=== PATIENT | female | born 1995 | race Caucasian/White ===

== ENCOUNTER 2021-04-13 10:23 | Inpatient (IN) | payer OTHER ==
[2021-04-13] VITALS (32 sets, daily range): BP systolic 98–138; BP diastolic 54–80
[~2021-04-13] VITALS: Ht 175.3 cm; Wt 92.4 kg
[2021-04-13] MEDS ORDERED: LR 1,000 ML IV SCH ×2 (10:40→10:55)
[2021-04-13] MEDS ORDERED: TRANEXAMIC ACID INJection 1,000 MG in NS 100 ML IV PRN ×3 (10:40→10:55)
[2021-04-13] MEDS ORDERED: LACTATED RINGER'S 1000 ML IV STA ×3 (10:40→10:51)
[2021-04-13] MEDS ORDERED: OXYTOCIN DRIP 30 UNITS in IV 1 EA IV PRN ×3 (10:40→10:55)
[2021-04-13] MEDS ORDERED: CARBOPROST TROMETHAMINE 250 MCG/ML AMP IM PRN ×2 (10:50→10:55)
[2021-04-13] MEDS ORDERED: TUMS500C PO (11:03)
[2021-04-13] MEDS ORDERED: STUACAP PO (11:03)
[2021-04-13] MEDS ORDERED: PROP60CA PO (11:05)
[2021-04-13] MEDS ORDERED: HOME MED LIST COMPLETE! XX SCH (11:20)
[2021-04-13 11:50] LABS: HEMATOCRIT 38.6 % (36.0-47.0); HEMOGLOBIN 13.4 g/dl (12.0-15.5); MEAN CORPUSCULAR HEMOGLOBIN 31.2 pg (27.0-33.0); MEAN CORPUSCULAR HGB CONC 34.7 g/dl (32.0-36.5); MEAN CORPUSCULAR VOLUME 89.8 fl (80.0-96.0); PLATELET COUNT, AUTOMATED 239 10^3/uL (150-450); WHITE BLOOD COUNT 13.1 10^3/uL (4.0-10.0)
[2021-04-13 12:25] LABS: ALT/SGPT 20 U/L (12-78); BILIRUBIN,TOTAL 0.4 MG/DL (0.2-1.0); CREATININE FOR GFR 0.56 MG/DL (0.55-1.30); GLOMERULAR FILTRATION RATE > 60.0 (>60); LDH LACTATE DEHYDROGENASE 159 U/L (84-246); URIC ACID 4.8 MG/DL (2.6-6.0)
--- NOTE | 2021-04-13 13:35 | HPEPDOC ---
Obstetrical History & Physical General Date of Admission Apr 13, 2021 at 10:42 History of Present Illness 25 yo at 37w0d with JULIA of 04 MAY 2021 was sent from the clinic to L&D for IOL for CHTN on propanolol 60 mg with variable decelerations in the clinic today during APFTs. She denies headache, chest pain, RUQ pain, and visual changes. She has supportive family at the bedside. 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: No pertinent history Past Medical History Medical History CHTN, mitral valve regurgitation, migraine headaches Surgical History: Leburn teeth, Other (Breast lumpectomy x3 for pilonidal cysts) Family History Significant Family History: Cancer, Heart disease, Hypertension Social History Marital Status: Psychosocial History: No pertinent psych hx * Smoker: non-smoker Alcohol: Denies Drugs: denies Abuse Violence Screening Have you been hit/kicked/slapp: No Have you been sexually assault: No Imunizations Tdap status: current Influenza Status: current Allergies Coded Allergies: acetaminophen (Verified Allergy, Intermediate, RASH N/V, 04/13/21) hydrocodone (Verified Allergy, Intermediate, RASH N/V, 04/13/21) sulfamethoxazole (Verified Allergy, Unknown, 04/13/21) trimethoprim (Verified Allergy, Unknown, 04/13/21) Medications Scheduled Calcium Carbonate (Tums) 200 Mg Tab.chew, 2 TAB PO QID for cough and congestion Propranolol HCl (Propranolol HCl ER) 60 Mg Cap.sa.24h, 1 CAP PO DAILY Miscellaneous Medications Pnv No.63/Iron,Carb/Folic/Dha ([place] One Capsule) 1 Each Capsule, 1 CAP PO Physical Examination Physical Examination GENERAL: Alert and oriented times three. BREAST: . ABDOMEN: Gravid and non-tender to touch. FETUS: Is vertex (VTX) by sterile vaginal examination (SVE), fetus is vertex (VTX) by Adin. HEART RATE: Regular rate and rhythm. LUNGS: Clear to auscultation (CTA). EXTREMITIES: No edema. No clonus. Deep tendon reflexes (DTRs) + 2. Vital Signs/I&O Vital Signs Date Time Temp Pulse Resp B/P (MAP) Pulse Ox O2 Delivery O2 Flow Rate FiO2 04/13/21 10:59 97.4 81 18 126/79 (95) Room Air Pertinent Laboratoy Data Blood Type: A+ RBC Antibody Screen: Negative HIV: Negative Hepatitis B: Negative Rapid Plasma Reagin: Nonreactive Rubella: Immune Varicella: Immune Chlamydia/Gonorrhea: Negative Group B Streptococcus: Negative Cystic Fibrosis: Negative Steroid Therapy Steroid Therapy: No Vaginal Examination Dilation: 1cm Effacement: 50% Station: -3 Cervical Consistency: Medium Cervical Position: Posterior Presentation: Cephalic presentation Position: Vertex (occiput) Assessment Heart Rate (FHR): 125 Variability: Moderate Accelerations: Present Decelerations: None Tocometer Contractions: No Multi-drug resistant Organism: No history of MDRO Assessment/Plan Assessment IUP at 37w0d IOL for CHTN on medications Plan Admit and orient. National Facilities Manager and consent. Diet: clear liquids. Group B Streptococcus (GBS) negative. Labs and intravenous (IV) per unit protocol. Counseled on cook balloon, cytotec, Pitocin and induction of labor (IOL). Lactated Ringers (LR): Bolus 1000 mL, then at 125 mL/hr. After discussion of plan with the patient and her spouse, it was mutually agreed upon for IOL to start with a cook catheter balloon and cytotec. Anticipate normal spontaneous delivery (). C-S as appropriate. The start of IOL has been placed on hold due to high census of L&D unit and nursing staff/patient ratios and her IOL will be started when safe to proceed. Patient and her spouse have been made aware of hold status and are agreeable to the plan Labor and Delivery Counseling We will deliver your baby through the vagina with possible assistance of forceps or vacuum device if needed for maternal or indications. Forceps and vacuum are devices that can assist with vaginal delivery when normal pushing efforts cannot achieve delivery on their own or when delivery is needed in an emergency for baby's well-being. Medications may be required to induce or augment (help) your labor in order to achieve a vaginal delivery. An episiotomy may be required to help your baby to delivery vaginally. You may also require repair of any lacerations or tears of your vagina or vulva that are caused by delivery. In some cases, emergencies can occur that require an emergency section delivery so quickly that there may not be enough time to stop and complete consent forms for section. Understand that if this occurs, your providers will discuss the need for a section with you before they proceed with surgery. section is the delivery of your baby through an incision in your abdomen. In some situations, section may be safer to mom and baby than continuing labor and is only performed when clinically indicated. Risks of vaginal delivery include but are not limited to: Bleeding, infection, injury to the vagina, pelvic structures, injury to baby, damage to the uterus, reactions to anesthesia, uterine rupture, risk of hysterectomy for life threatening bleeding, or . Medications used to induce or augment labor may increase your risk for infection, uterine tachysystole, uterine rupture, heart rate abnormalities, need for emergency delivery or possible ce sarean hysterectomy, and hemorrhage. Additional risks for use of forceps and vacuum include: increased risk of perineal and vaginal lacerations, risk of urinary or bowel incontinence, increased risk of injury to baby with bruising, scratches, hematomas on the head, or intracranial bleeding. Risks of obstetric complications secondary to CHTN were discussed to include pre -eclampsia, eclampsia, HELLP syndrome, DIC, and PPH, along with the risks of shoulder dystocia. We discussed the risks, process, and methods for IOL to include cytotec, cook catheter balloon, and pitocin. All questions were answered to both her and her spouse's satisfaction. They verbalized understanding of all information and is without any further questions at this time. EVARISTO FRANCES CNM Apr 13, 2021 11:37
[2021-04-13] MEDS ORDERED: BUTORPHANOL 2 MG/ML INJ (J0595) IV PRN (13:45)
[2021-04-13] MEDS ORDERED: FAMOTIDINE INJ 20MG/2ML VIAL (S0028 PER 1) IVP PRN (13:45)
[2021-04-13] MEDS ORDERED: PROMETHAZINE INJ 25 MG/ML VIAL (J2550) IV PRN (13:45)
[2021-04-13 15:46] LABS: CREATININE,RANDOM URINE 47.5 MG/DL; TOTAL PROTEIN,RANDOM URINE 9.3 MG/DL (0.0-12.0)
[2021-04-13] MEDS: LR 1,000 ML IV SCH (19:55)
[2021-04-14] VITALS (47 sets, daily range): BP systolic 80–147; BP diastolic 45–93
--- NOTE | 2021-04-14 00:29 | IPNPDOC ---
Obstetrical Progress Note Date of Service Apr 14, 2021 Objective Vital Signs Date Time Temp Pulse Resp B/P (MAP) Pulse Ox O2 Delivery O2 Flow Rate FiO2 04/13/21 18:06 97.0 74 18 120/72 (88) 04/13/21 10:59 Room Air Assessment and Plan Additional Comments To room for start of induction of labor. Ms. Donald is a 25yo at 37+1 with CHTN on medications who had some variable decelerations in the clinic on NST. She has been continously monitored until staffing was available to start her induction of labor. She has been category I, but difficult to monitor. Her SVE was 2/50/-3 and a DLFB was placed. Will consider addition of cytotec if the baby tolerates the DLFB and monitoring can remain consistent. GRAHAM SAM DO Apr 14, 2021 00:29
[2021-04-14] MEDS ORDERED: FENTANYL 2MCG/ML ROPIVACAINE 0.2% IN 0.9% NACL 100ML IVBAG As Ordered ONE (02:13)
[2021-04-14] MEDS: LR 1,000 ML IV SCH ×5 (02:58→16:32)
[2021-04-14] MEDS ORDERED: ONDANSETRON 4MG/2ML VIAL IV PRN (03:45)
[2021-04-14] MEDS ORDERED: LACTATED RINGER'S 1000 ML IV PRN (03:45)
[2021-04-14] MEDS ORDERED: EPIDURAL/PCA KEYS XX PRN (03:45)
[2021-04-14] MEDS ORDERED: diphenhydrAMINE 50MG/ML VIAL (J1200) IV PRN (03:45)
[2021-04-14] MEDS ORDERED: NALOXONE INJ 0.4MG/1ML VIAL (J2310 PER 1MG) IV PRN (03:45)
[2021-04-14] MEDS ORDERED: EPIDURAL COMMENT XX SCH (03:45)
[2021-04-14] MEDS ORDERED: REFRIGERATOR IV KEYS XX PRN (03:45)
[2021-04-14] MEDS: FENTANYL/ROPIVACAINE/NACL BAG 100 ML EPIDURAL SCH ×3 (04:05→13:32)
[2021-04-14] MEDS: ePHEDrine SULFATE 25 MG/5 ML(5MG/ML) SYRINGE IV PRN ×3 (04:58→05:05)
[2021-04-14] MEDS ORDERED: OXYTOCIN DRIP 30 UNITS in IV 1 EA IV SCH ×2 (09:55→18:00)
--- NOTE | 2021-04-14 10:56 | IPNPDOC ---
Obstetrical Progress Note Date of Service Apr 14, 2021 Subjective 25 yo at 37w1d with JULIA of 04 MAY 2021 admitted for IOL for CHTN. She is comfortable with her epidural. She has no complaints at this time. Objective Vital Signs Date Time Temp Pulse Resp B/P (MAP) Pulse Ox O2 Delivery O2 Flow Rate FiO2 04/14/21 07:20 97.8 62 18 98/54 (69) 04/13/21 10:59 Room Air Cook balloon found in the vagina with no cervix around the internal cook balloon. Cook balloon removed intact. Assessment Heart Rate (FHR): 115 Variability: Moderate Accelerations: Present Decelerations: None Tocometer Contractions: Yes Frequency: regular (every 4 minutes) Sterile Vaginal Examination Dilation: 6 cm Effacement (%): 70% Station: -2 Cervical Consistency: Soft Cervical Position: Anterior Postion/Presentation: Cephalic presentation Assessment and Plan Age: 25 : 1 Term: 0 Pre-term: 0 Abortions: 0 Livin Weeks & Days 37w1d Status: Reassuring Group B Streptococcus: Negative Anticipate: Vaginal Delivery EVARISTO FRANCES CNM Apr 14, 2021 10:56
--- NOTE | 2021-04-14 16:06 | IPNPDOC ---
Obstetrical Progress Note Date of Service Apr 14, 2021 Subjective 25 yo at 37w1d with JULIA of 04 MAY 2021 admitted for IOL for CHTN. She reports that she has been having some small episodes of vomiting and she has not told anyone about this. She has had a few episodes of vomiting after eating jello. Discussed that she should inform staff when she vomits so that we can help take care of vomiting. She reports that she was given zofran and pepcid las t night and reports that it did not help. Objective Vital Signs Date Time Temp Pulse Resp B/P (MAP) Pulse Ox O2 Delivery O2 Flow Rate FiO2 04/14/21 11:50 51 95/52 (66) 04/14/21 07:20 97.8 18 04/13/21 10:59 Room Air AROM for clear fluid Assessment Heart Rate (FHR): 125 Variability: Moderate Accelerations: Present Decelerations: Variable Tocometer Contractions: Yes Frequency: regular (every 2-5 minutes) Sterile Vaginal Examination Dilation: 6 cm Effacement (%): 80% Station: -2 Cervical Consistency: Soft Cervical Position: Middle Postion/Presentation: Cephalic presentation Assessment and Plan Age: 25 : 1 Term: 0 Pre-term: 0 Abortions: 0 Livin Weeks & Days 37w1d Status: Reassuring Group B Streptococcus: Negative Anticipate: Vaginal Delivery Additional Comments Will start bolus of IV fluids. Discussed with her that nausea may be more due to blood pressure being lower than her normal level. May need to administer another dose of ephedrine, however will try to see how she responds to IV bolus first She has received 3 doses of IV ephedrine after epidural placement. She verbalizes understanding of this information. Discussed patient status with Dr. Mendez, who agrees with plan EVARISTO FRANCES CNM Apr 14, 2021 16:06
[2021-04-14] MEDS ORDERED: LIDOCAINE 1% MDV 20ML VIAL As Ordered ONE (17:36)
[2021-04-14] MEDS ORDERED: RHOGAM 300 MCG (1500 IU) INJ (J2790) IM SCH (18:00)
[2021-04-14] MEDS ORDERED: IBUPROFEN 600MG TAB PO PRN (18:00)
[2021-04-14] MEDS ORDERED: METHYLERGONOVINE MALEATE 0.2 MG TAB PO PRN (18:00)
[2021-04-14] MEDS ORDERED: MEASLES,MUMPS,RUBELLA VACCINE INJ (MMR-II) (90707) SC SCH (18:00)
[2021-04-14] MEDS ORDERED: DIBUCAINE 1% OINTMENT 30GM TOP PRN (18:00)
[2021-04-14] MEDS ORDERED: LIDOCAINE 1% MDV 20ML VIAL SC ONE (18:05)
[2021-04-14 18:11] LABS: CORD GAS ABE A -5.7; CORD GAS HCO3 A 19.3 MEQ/L; CORD GAS O2 SAT A 57.4 %; CORD GAS PCO2 A 36.6 mmHg; CORD GAS PH A 7.339 UNITS; CORD GAS PO2 A 24.6 mmHg; CORD GAS SBC A 18.9 MEQ/L; CORD GAS TCO2 A 20.4 MEQ/L
[2021-04-14 18:12] LABS: CORD GAS HCO3 V 20.5 MEQ/L; CORD GAS O2 SAT V 62.8 %; CORD GAS PCO2 V 39.5 mmHg; CORD GAS PH V 7.332 UNITS; CORD GAS PO2 V 24.4 mmHg; CORD GAS SBC V 19.5 MEQ/L; CORD GAS TCO2 V 21.7 MEQ/L
--- NOTE | 2021-04-14 18:14 | DNPDOC ---
[facility] Delivery Note Delivery Note DATE OF DELIVERY: 04/14/21 PREDELIVERY DIAGNOSIS: 37weeks gestation Category II heart tracing CHTN Mitral valve regurgitation Migraine headaches POST DELIVERY DIAGNOSIS: Delivered. 37weeks and 1 day gestation Category II heart tracing CHTN Mitral valve regurgitation Migraine headaches PROCEDURE: Spontaneous vaginal delivery Repair of second degree laceration and R periurethral laceration LEAD JAVA PROGRAMMER: Dr. Pierre ANESTHESIA: epidural, 1% lidocaine for perineal repair ESTIMATED BLOOD LOSS: 100 mL. FINDINGS: 5 pound 12 ounce male infant, Score 8/9. Arterial cord gas 7.3/- 5.7, venous 7.3/-5.0. Second degree perineal laceration and R periurethral laceration DELIVERY SUMMARY: Millicent is a 25 yo at 37w0d with JULIA of 04 MAY 2021 was sent from the clinic to L&D for IOL for CHTN on propanolol 60 mg with variable decelerations during APFTs. Her induction was initiated with a DLFB, followed by pitocin and AROM. She progressed to C/C/+1 and felt the urge to push. With good maternal pushing efforts, infants head delivered over the perineum and was allowed to restitute to GAVIN. The remainder of the body delivered immediately after without difficulty. was crying and moving all extremities. Cord was doubly clamped and cut by father of the baby. Cord gases obtained. Placenta delivered intact and perineum was inspected with second degree laceration and R periurethral laceration noted. Pt's epidural was not working well at this time therefore 1% lidocaine injected for additional analgesia. Repair was performed in usual fashion with 3-0 vicryl radpide, and figure of eight suture was placed on periurethral incision. EBL was 100cc. Mom and baby stable immediately postpa rtum. NANCI PIERRE M.D. Apr 14, 2021 18:14
[2021-04-14] MEDS: IBUPROFEN 800 MG TAB PO PRN (19:41)
[2021-04-14] MEDS ORDERED: ACETAMINOPHEN TAB 650MG DOSE (2X325MG) PO PRN (23:40)
[2021-04-15] VITALS: BP 107/60
[2021-04-15] MEDS: DOCUSATE SODIUM 100MG CAPSULE PO PRN (05:15)
[2021-04-15] MEDS: IBUPROFEN 800 MG TAB PO PRN ×2 (05:17→16:49)
[2021-04-15 06:00] VITALS: BP 104/51
[2021-04-15] MEDS: ACETAMINOPHEN 500 MG TAB PO PRN ×3 (06:53→21:05)
--- NOTE | 2021-04-15 07:58 | IPNPDOC ---
Progress Note Date of Service: Apr 15, 2021 Day#: 1 Progress Note SUBJECT: Millicent is a 25-year-old 1 now Para 1001 status post uncompl icated spontaneous vaginal delivery at 37 1/7 weeks' on 04/14/21 of a 5 pound 12 ounce male infant, Score 8/9. Arterial cord gas 7.3/-5.7, venous 7.3/-5.0. Second degree perineal laceration and R periurethral laceration performed. Doing well day # 1. She has been ambulating, voiding spontaneously without issue and tolerating regular diet. Breast feeding without issue. Reports lochia is minimal. OBJECTIVE: VITAL SIGNS: Within normal limits, afebrile. Alert and oriented times three. normal work of breathing Heart rate: Regular rate Abdomen: Fundus firm at U-2. Soft, NTTP. ASSESSMENT: Millicent is a 25-year-old 1 now Para 1001 status post uncomplicated spontaneous vaginal delivery at 37 1/7 weeks' on 04/14/21 of a 5 pound 12 ounce male , Score 8/9. Arterial cord gas 7.3/-5.7, venous 7.3/-5.0. Second degree perineal laceration and R periurethral laceration performed. Doing well day # 1.. Vitals within normal limits, afebrile, hemodynamically stable with no evidence of infection. PLAN: 1. Discharge to home tomorrow. 2. Tylenol and Motrin for pain. 3. Encourage breast feeding and ambulation. Desires circumcision for baby 4. Undecided on contraception. Plans to discuss at 6wk visit. 5. Routine PP visit in 6 weeks in clinic. 6. Discussed return precautions at length. VS, I&O, 24H, Fishbone Vital Signs/I&O Vital Signs Date Time Temp Pulse Resp B/P (MAP) Pulse Ox O2 Delivery O2 Flow Rate FiO2 04/15/21 06:00 97.4 76 16 104/51 (68) 97 Room Air I&O- Last 24 Hours up to 6 AM 04/15/21 06:00 Intake Total 1867.8 ml Output Total 2100 ml Balance -232.2 ml Laboratory Data 24H LABS Laboratory Tests 2 04/14/21 17:51: Cord Arterial Blood pH 7.339, Cord Arterial Blood PCO2 36.6, Cord Arterial Blood PO2 24.6, Cord Arterial Blood HCO3 19.3, Cord Arterial Blood Total CO2 20.4, Cord Arterial Blood Base Excess -5.7, Cord Arterial Base Excess (Standard 18.9, Cord Arterial Bld Oxygen Saturation 57.4, Cord Venous Blood pH 7.332, Cord Venous Blood PCO2 39.5, Cord Venous Blood PO2 24.4, Cord Venous Blood HCO3 20.5, Cord Venous Blood Total CO2 21.7, Cord Venous Base Excess (Actual) -5.0, Cord Venous Base Excess (Standard) 19.5, Cord Venous Blood Oxygen Saturation 62.8 04/14/21 18:02: Serology Scanned Report Hepatitis B Testing NANCI PIERRE M.D. Apr 15, 2021 07:58
[2021-04-15] MEDS: PRENATAL VITAMINS CHEWABLE TABLET PO SCH (08:11)
[2021-04-15 18:00] VITALS: BP 119/63
[2021-04-16 06:00] VITALS: BP 121/65
[2021-04-16] MEDS: DOCUSATE SODIUM 100MG CAPSULE PO PRN (06:29)
[2021-04-16] MEDS: ACETAMINOPHEN 500 MG TAB PO PRN (06:29)
[2021-04-16] MEDS: PRENATAL VITAMINS CHEWABLE TABLET PO SCH (08:09)
[2021-04-16] MEDS ORDERED: ACET1TAB55 PO (09:00)
[2021-04-16] MEDS ORDERED: IBUP80TA PO (09:00)
[2021-04-16] MEDS ORDERED: DIBU28OI2 TOP (09:00)
[2021-04-16] MEDS: IBUPROFEN 800 MG TAB PO PRN (09:41)
--- NOTE | 2021-04-16 09:50 | DS.PDOC ---
Discharge Summary General Date of Admission Apr 13, 2021 at 10:42 Date of Discharge Apr 16, 2021 Discharge Summary HOSPITAL COURSE: Ms. Donald is a 25 yo G1 now P1 who underwent an uncomplicated on 14Apr2021 after being admitted for an IOL for cHTN and a Cat II FHR tracing. Her course was unremarkable. On her day of discharge she met all appropriate discharge criteria. She was ambulating, voiding, tolerating a regular diet, and had minimal lochia. Her BP remained stable and she had no symptoms of RUQ pain, visual changes, SOB, or headaches. DISCHARGE MEDICATIONS: Please see below. ALLERGIES: Please see below. PHYSICAL EXAMINATION ON DISCHARGE: VITAL SIGNS: Please see below. GENERAL: AAOX3, NAD ABDOMINAL EXAMINATION: Fundus firm at U-2. No fundal tenderness EXTREMITIES: No edema PSYCHIATRIC EXAMINATION: Affect appropriate LABORATORY DATA: Please see below. ACTIVITY: Pelvic rest for 6 weeks DIET: Regular DISCHARGE PLAN: Discharge home DISPOSITION: Discharge home on 16Apr2021 DISCHARGE INSTRUCTIONS: 1. Nothing in the vagina for 6 weeks ITEMS TO FOLLOWUP ON ON OUTPATIENT: 1. Walk in for a BP check in the [place] [facility] office on Saturday or Saturday 2. Schedule a visit for 6 weeks post delivery DISCHARGE CONDITION: Stable. TIME SPENT ON DISCHARGE: Greater than 20 minutes. Santos Medrano, Vital Signs/I&Os Vital Signs Date Time Temp Pulse Resp B/P (MAP) Pulse Ox O2 Delivery O2 Flow Rate FiO2 04/16/21 06:00 97.7 63 18 121/65 (83) 97 Room Air Discharge Medications Scheduled Calcium Carbonate (Tums) 200 Mg Tab.chew, 2 TAB PO QID for cough and congestion, (Reported) Propranolol HCl (Propranolol HCl ER) 60 Mg Cap.sa.24h, 1 CAP PO DAILY, (Reported) Scheduled PRN Acetaminophen (Acetaminophen) 325 Mg Tablet, 650 MG PO Q4HP PRN for PAIN LEVEL 1-5 Dibucaine (Dibucaine) 28 Gm Oint...g., 0 DOSE TOP Q4H PRN for pp Ibuprofen (Ibuprofen) 800 Mg Tablet, 800 MG PO Q8HP PRN for PAIN LEVEL 6-10 Miscellaneous Medications Pnv No.63/Iron,Carb/Folic/Dha ([place] One Capsule) 1 Each Capsule, 1 CAP PO, (Reported) Allergies Coded Allergies: hydrocodone (Verified Allergy, Intermediate, rash n/v from vicodin can take APAP with no problems per pt, 04/14/21) sulfamethoxazole (Verified Allergy, Unknown, 04/13/21) trimethoprim (Verified Allergy, Unknown, 04/13/21) SANTOS MEDRANO DO Apr 16, 2021 09:50
== END 2021-04-16 12:40 | disposition home or self-care (01) | DRG 807 ==
LOC: M LDO 10:23 → M LDI 10:42 → M PED 04-14 21:00
PROVIDERS: ADMIT Registered Nurse Maternal Newborn; ATTEND Registered Nurse Maternal Newborn
PROC: 10E0XZZ Delivery of Products of Conception, External Approach (ICD-10-PCS; principal; 2021-04-14)
PROC: 10907ZC Drainage of Amniotic Fluid, Therapeutic from Products of Conception, Via Natural or Artificial Opening (ICD-10-PCS; 2021-04-14)
PROC: 3E033VJ Introduction of Other Hormone into Peripheral Vein, Percutaneous Approach (ICD-10-PCS; 2021-04-14)
PROC: 3E0P7VZ Introduction of Hormone into Female Reproductive, Via Natural or Artificial Opening (ICD-10-PCS; 2021-04-14)
PROC: 0KQM0ZZ Repair Perineum Muscle, Open Approach (ICD-10-PCS; 2021-04-14)
DX: O10.92 Unspecified pre-existing hypertension complicating childbirth (principal); Z37.0 Single live birth; Z3A.37 37 weeks gestation of pregnancy; Z79.899 Other long term (current) drug therapy; O70.1 Second degree perineal laceration during delivery; Z88.5 Allergy status to narcotic agent; Z88.8 Allergy status to other drugs, medicaments and biological substances

== ENCOUNTER 2021-06-24 01:34 | Emergency (ER) | payer OTHER ==
[~2021-06-24] VITALS: Ht 175.3 cm; Wt 81.8 kg
[~2021-06-24 01:34] MED LIST: ACET1TAB55 PO; DIBU28OI2 TOP; IBUP80TA PO; PROP60CA PO; STUACAP PO; TUMS500C PO
[2021-06-24 02:17] LABS: HEMATOCRIT 40.3 % (36.0-47.0); HEMOGLOBIN 13.9 g/dl (12.0-15.5); MEAN CORPUSCULAR HEMOGLOBIN 30.2 pg (27.0-33.0); MEAN CORPUSCULAR HGB CONC 34.5 g/dl (32.0-36.5); MEAN CORPUSCULAR VOLUME 87.4 fl (80.0-96.0); PLATELET COUNT, AUTOMATED 300 10^3/uL (150-450); RED BLOOD COUNT 4.61 10^6/uL (4.00-5.40); WHITE BLOOD COUNT 11.6 10^3/uL (4.0-10.0)
[2021-06-24 02:48] LABS: ALBUMIN 3.8 GM/DL (3.2-5.2); ALT/SGPT 27 U/L (12-78); BILIRUBIN,DIRECT 0.2 MG/DL (0.0-0.2); BILIRUBIN,TOTAL 0.9 MG/DL (0.2-1.0); BLOOD UREA NITROGEN 15 MG/DL (7-18); CALCIUM LEVEL 9.3 MG/DL (8.5-10.1); CARBON DIOXIDE LEVEL 23 MEQ/L (21-32); CHLORIDE LEVEL 107 MEQ/L (98-107); CREATININE FOR GFR 0.98 MG/DL (0.55-1.30); GLOMERULAR FILTRATION RATE > 60.0 (>60); GLUCOSE, FASTING 117 MG/DL (70-100); LIPASE 192 U/L (73-393); POTASSIUM SERUM 3.5 MEQ/L (3.5-5.1); SODIUM LEVEL 141 MEQ/L (136-145); TOTAL PROTEIN 6.8 GM/DL (6.4-8.2)
[2021-06-24 02:53] LABS: HCG, SERUM QUALITATIVE NEGATIVE (NEGATIVE)
[2021-06-24] MEDS ORDERED: ONDANSETRON 4MG/2ML VIAL IV ONE (03:20)
[2021-06-24] MEDS ORDERED: NS 1,000 ML IV ONE (03:20)
[2021-06-24] MEDS ORDERED: KETOROLAC 30 MG/ML 1ML VIAL IV ONE (03:20)
[2021-06-24 04:24] VITALS: BP 147/77
--- NOTE | 2021-06-24 05:07 | REPVR ---
PROCEDURE INFORMATION: Exam: CT Abdomen And Pelvis Without Contrast Exam date and time: 06/24/2021 3:37 AM Age: 25 years old Clinical indication: Abdominal pain; Flank; Left; Additional info: Left flank pain TECHNIQUE: Imaging protocol: Computed tomography of the abdomen and pelvis without contrast. Radiation optimization: All CT scans at this facility use at least one of these dose optimization techniques: automated exposure control; mA and/or kV adjustment per patient size (includes targeted exams where dose is matched to clinical indication); or iterative reconstruction. COMPARISON: No relevant prior studies available. FINDINGS: Liver: Normal. No mass. Gallbladder and bile ducts: Normal. No calcified stones. No ductal dilation. Pancreas: Normal. No ductal dilation. Spleen: Normal. No splenomegaly. Adrenal glands: Normal. No mass. Kidneys and ureters: Slight stranding surrounding the left kidney and proximal left ureter. Slight left ureterectasis. A suspected punctate calculus near the left ureterovesical junction may reside within the immediate inner margin of the urinary bladder difficult to confirm on axial images. Stomach and bowel: Accentuation of the wall of the stomach which may be on the basis of nondistention. Appendix: No evidence of appendicitis. Intraperitoneal space: Unremarkable. No free air. No significant fluid collection. Vasculature: Unremarkable. No abdominal aortic aneurysm. Lymph nodes: Unremarkable. No enlarged lymph nodes. Urinary bladder: Unremarkable as visualized. Reproductive: Unremarkable as visualized. Bones/joints: Unremarkable. No acute fracture. Soft tissues: Unremarkable. IMPRESSION: 1. Left ureterovesical junction punctate calculus may reside at the inner margin of the urinary bladder difficult confirmation on the basis of axial images although coronal and sagittal reconstruction images suggest bladder location. 2. Punctate right intrarenal calculus best demonstrated on coronal reconstruction images. Electronically signed by: Bella Gannon On 06/24/2021 05:06:03 AM
[2021-06-24] MEDS ORDERED: KETO10TAB PO (05:43)
[2021-06-24] MEDS ORDERED: ONDA4TAB6 PO (05:43)
== END 2021-06-24 07:40 | disposition home or self-care (01) ==
LOC: M ED 01:34
DX: N20.1 Calculus of ureter (principal); N23 Unspecified renal colic; I10 Essential (primary) hypertension; R51.9 Headache, unspecified; Z79.899 Other long term (current) drug therapy; Z88.5 Allergy status to narcotic agent; Z88.2 Allergy status to sulfonamides
CPT/HCPCS: 74176; 80053; 81001; 82248; 83690; 84703; 85027; 96361; 96374; 96375; 99284; J1885; J2405

== ENCOUNTER → 2023-07-15 | Outpatient (CLI) | payer OTHER ==
[~2023-07-15] MED LIST changes: +ISOVUE-300 61% 100ML VIAL As Ordered ONE; +KETO10TAB PO; +LIDOCAINE 1% MDV 20ML VIAL As Ordered ONE; +ONDA4TAB6 PO; +TRIAMCINOLONE ACETONIDE SUSP 40MG/ML 1ML VIAL As Ordered ONE
== END ==
LOC: M RAD 14:17
PROVIDERS: ATTEND Physician Assistant Surgical
DX: S73.121A Ischiocapsular ligament sprain of right hip, initial encounter (principal); X58.XXXA Exposure to other specified factors, initial encounter; Y92.9 Unspecified place or not applicable
CPT/HCPCS: 20610; 77002; J3301; Q9967

== ENCOUNTER 2023-09-16 08:57 | Day surgery (SDC) | payer OTHER ==
[~2023-09-16] VITALS: Ht 175.3 cm; Wt 78.9 kg
[~2023-09-16 08:57] MED LIST changes: +AMIT50TA PO; +DICL50TAB PO; -ISOVUE-300 61% 100ML VIAL As Ordered ONE; -LIDOCAINE 1% MDV 20ML VIAL As Ordered ONE; +NS 1,000 ML IV ONE; -TRIAMCINOLONE ACETONIDE SUSP 40MG/ML 1ML VIAL As Ordered ONE
[2023-09-16] MEDS ORDERED: propofoL 200 MG/20 ML VIAL As Ordered ONE (10:13)
[2023-09-16] MEDS ORDERED: LIDOCAINE 2% 100MG/5ML SDV (FOR ANES.) As Ordered ONE (10:13)
[2023-09-16] MEDS ORDERED: fentaNYL 100 MCG/2 ML INJECTION As Ordered ONE (10:14)
[2023-09-16 10:56] VITALS: TEMP 98.4
[2023-09-16 11:21] VITALS: BP 115/73; O2SAT 99
== END 2023-09-16 11:22 | disposition home or self-care (01) ==
LOC: M OPP 08:57
PROVIDERS: ATTEND Internal Medicine Gastroenterology
DX: K22.2 Esophageal obstruction (principal); K20.0 Eosinophilic esophagitis; R13.10 Dysphagia, unspecified; R12 Heartburn; Z79.1 Long term (current) use of non-steroidal anti-inflammatories (NSAID); Z79.891 Long term (current) use of opiate analgesic; Z79.899 Other long term (current) drug therapy; Z88.2 Allergy status to sulfonamides; Z88.5 Allergy status to narcotic agent
CPT/HCPCS: 43239; 88305; J3010